=== PATIENT | male | born 1965 | race Two or more races ===

== ENCOUNTER 2020-02-03 14:46 | Emergency (ER) | payer SELFPAY ==
[~2020-02-03] VITALS: Ht 154.9 cm; Wt 73.0 kg
[2020-02-03] MEDS ORDERED: IBUPROFEN 600MG TABLET PO ONE (15:15)
[2020-02-03 17:12] VITALS: BP 127/81
== END 2020-02-03 17:12 | disposition home or self-care (01) ==
LOC: ER 14:46
DX: M25.521 Pain in right elbow (principal); Z88.8 Allergy status to other drugs, medicaments and biological substances
CPT/HCPCS: 73080; 99283

== ENCOUNTER 2025-02-12 04:57 | Emergency (ER) | payer BC, MEDICAID ==
[~2025-02-12] VITALS: Ht 154.9 cm; Wt 73.3 kg
[2025-02-12 05:07] VITALS: O2SAT 99
[2025-02-12] MEDS ORDERED: LIDOCAINE HCL 1% 20ML VIAL INFIL ONE (05:45)
[2025-02-12 08:22] VITALS: BP 155/86; PULSE 86; RESP 18; TEMP 36.7; O2SAT 99
== END 2025-02-12 08:28 | disposition home or self-care (01) ==
LOC: ER 04:57
DX: S01.111A Laceration without foreign body of right eyelid and periocular area, initial encounter (principal); S69.91XA Unspecified injury of right wrist, hand and finger(s), initial encounter; I10 Essential (primary) hypertension; E78.00 Pure hypercholesterolemia, unspecified; Z79.899 Other long term (current) drug therapy; X58.XXXA Exposure to other specified factors, initial encounter; Y93.89 Activity, other specified; Y92.89 Other specified places as the place of occurrence of the external cause; Y99.8 Other external cause status
CPT/HCPCS: 73110; 12011; 99283; J2003; Z7610